=== PATIENT | female | born 1990 | race Caucasian/White ===

== ENCOUNTER 2017-10-10 01:34 | Emergency (ER) | payer BC ==
[2017-10-10] MEDS ORDERED: Amoxicillin/Clavulanate K 875-125 MG Tab PO ONE (01:50)
--- NOTE | 2017-10-10 01:57 | EDM.PDOC ---
ED HPI GENERAL MEDICAL PROBLEM - General Chief Complaint: Bite:Animal, Insect Stated Complaint: CAT BITE Time Seen by Provider: 10/10/17 01:50 Source of Information: Reports: Patient History Limitations: Reports: No Limitations - History of Present Illness INITIAL COMMENTS - FREE TEXT/NARRATIVE: 26-year-old female attends the ED after being attacked by her own cat during sleep tonight. The cat sleeps in the bed and it is suspect the cat either became entrapped or hurt in some fashion or form and then viciously attacked her like lying and biting her right arm both volarly and extensor surfaces. It also attacked her face with a claw garcia to her right upper eyelid and right facial cheek below the eye but avoiding the eye itself. Her tetanus toxoid is up -to-date. The cats shots are up-to-date. None of the wounds were big enough to allow suture repair. Debridement carried out of the right upper eyelid wound. There are some superficial scratches to her right anterior lateral thigh as well. 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 COMMUNICATIONS: Reports: Other (see below) Right Face Pain Score (Numeric/FACES): 7 - Related Data Allergies Allergy/AdvReac Type Severity Reaction Status Date / Time No Known Allergies Allergy Verified 10/10/17 01:41 Home Meds: Home Meds Alirocumab [Praluent Pen] 75 mg SQ ASDIRECTED 10/10/17 [History] Amoxicillin/Potassium Clav [Augmentin 500-125 Tablet] 1 each PO BID #10 tablet 10/10/17 [Rx] Rosuvastatin Calcium 40 mg PO DAILY 10/10/17 [History] Past Medical History Cardiovascular History: Reports: High Cholesterol (She has a severe form of familial type hypercholesterolemia.), Hypertension - Past Surgical History HEENT Surgical History: Reports: Tonsillectomy, Other (See Below) Other HEENT Surgeries/Procedures: wisdom tooth extraction GI Surgical History: Reports: Appendectomy Social & Family History - Tobacco Use Smoking Status *Q: Never Smoker - Recreational Drug Use Recreational Drug Use: No - Living Situation & Occupation Living situation: Reports: Occupation: Employed ED ROS GENERAL - Review of Systems Review Of Systems: See Below Constitutional: Reports: No Symptoms HEENT: Reports: No Symptoms Respiratory: Reports: No Symptoms Cardiovascular: Reports: No Symptoms Endocrine: Reports: No Symptoms GI/Abdominal: Reports: No Symptoms : Reports: No Symptoms Skin: Reports: No Symptoms Neurological: Reports: No Symptoms Psychiatric: Reports: No Symptoms Hematologic/Lymphatic: Reports: No Symptoms Immunologic: Reports: No Symptoms ED EXAM, ANIMAL BITE - Physical Exam Exam: See Below Exam Limited By: No Limitations General Appearance: Alert, Anxious, Mild Distress Eye Exam: Bilateral Eye: Normal Inspection (No signs that she suffered any corneal abrasions or injuries to the eye itself.), Other (There is a deep laceration and partial skin avulsion across her right lateral and mid upper eyelid.) Nose: Normal Inspection Throat/Mouth: Normal Lips, Normal Oropharynx Head: Atraumatic, Normocephalic, Facial Tenderness Neck: Normal Inspection, Supple, Non-Tender Respiratory/Chest: No Respiratory Distress, Lungs Clear, No Accessory Muscle Use (She has 2 lacerations to her right glen-face which are scratches from the cat.) Extremities: Other (She has superficial linear lacerations 3 to her right anterior lateral mid thigh. She has bite garcia compatible with canine bite garcia in 2 places medial aspect of her right arm and numerous scratches to the volar and extensor surface of the mid and proximal arm.) Neurological: Alert ( Again none of these are deep enough toward suture repair.) , Oriented, CN II-XII Intact, Normal Cognition Psychiatric: Normal Affect, Normal Mood Skin Exam: Normal Color, Warm/Dry Course - Vital Signs Last Recorded V/S: Last Vital Signs Temp 37.1 C 10/10/17 01:36 Pulse 88 10/10/17 01:36 Resp 16 10/10/17 01:36 BP 146/91 H 10/10/17 01:36 Pulse Ox 96 10/10/17 01:36 - Radiology Interpretation Free Text/Narrative:: 36-year-old female seen through the ED tonight after being attacked by her cat in her sleep tonight. Sleeps on their bed and it's unclear what provoked the cat to attack her. Appears that Was hurt in some fashion are formed. 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 At any rate the cat attacked her quite viciously with deep lacerations or scratches to her right lateral thigh right volar and extensor surface of her upper arm on the right side with puncture wounds indicating bites 2. She also suffered lacerations to her right glen-face particularly her right upper eyelid and right face below the eye along her nose. Last scratches are superficial and none of them will benefit from suture repair. She is up-to-date on her tetanus toxoid. She will be placed on Augmentin 875 mg by mouth now and then 500 mg twice a day for the next 5 days as prophylactic medication against infection. She will return to [facility] medical care if any signs of infection do develop. Wounds are to be cleansed daily and then topical antibiotic such as Polysporin or bacitracin to be applied Departure - Departure Time of Disposition: 02:06 Disposition: Home, Self-Care 01 Condition: Fair Clinical Impression: Cat scratch of face Qualifiers: Encounter type: initial encounter Qualified Code(s): S00.81XA - Abrasion of other part of head, initial encounter; W55.03XA - Scratched by cat, initial encounter - Discharge Information Prescriptions: Amoxicillin/Potassium Clav [Augmentin 500-125 Tablet] 1 each PO BID #10 tablet Referrals: Consuelo Reardon [employer] EXAMINER [Primary Care Provider] - Additional Instructions: Evaluation the emergency room tonight in regards to multiple deep scratches and bite garcia to the right arm and right side of the face from being attacked by your cat. Whatever reason the cat appeared to have been hurt and attacked uncontrollably. There are deep puncture wounds to the inside aspect of your right arm indicating canine bites. The rest are deep scratches. Treatment is to daily cleanse all wounds with soap and water. Showering is okay. Then apply topical antibiotic such as bacitracin or Polysporin to all wounds once daily usually at bedtime. Prophylactic antibiotics are to be taken Augmentin 500 mg twice daily for the next 5 days to prevent secondary wound infections due to cat bites often causing significant soft tissue infections 3 days later. Unfortunately some of these wounds will heal with permanent scarring.
== END 2017-10-10 02:10 | disposition home or self-care (01) ==
LOC: JD.ED 01:34
DX: S01.111A Laceration without foreign body of right eyelid and periocular area, initial encounter (principal); S71.111A Laceration without foreign body, right thigh, initial encounter; S40.811A Abrasion of right upper arm, initial encounter; I10 Essential (primary) hypertension; W55.03XA Scratched by cat, initial encounter
CPT/HCPCS: 99283; A9270

== ENCOUNTER 2018-04-29 16:57 | Emergency (ER) | payer BC ==
[2018-04-29] MEDS ORDERED: Sodium Chloride 0.9% 1,000 ML IV ONE (18:06)
[2018-04-29] MEDS ORDERED: Sodium Chloride 0.9% 10 ML Syringe FLUSH PRN (18:06)
[2018-04-29] MEDS ORDERED: HYDROmorphone 1 MG/ML Syringe IVPUSH ONE (18:06)
[2018-04-29] MEDS ORDERED: Ondansetron 4 MG/2 ML SDV IVPUSH ONE (18:06)
--- NOTE | 2018-04-29 19:46 | EDM.PDOC ---
ED HPI GENERAL MEDICAL PROBLEM - General Chief Complaint: Abdominal Pain Stated Complaint: R SIDE ABDOMINAL PAIN Time Seen by Provider: 04/29/18 17:55 Source of Information: Reports: Patient History Limitations: Reports: No Limitations - History of Present Illness INITIAL COMMENTS - FREE TEXT/NARRATIVE: 27 year old female presents for evaluation and treatment of abdominal pain. Reports abdominal pain for the last 2-3 days. Reports pain primarily in the epigastric area. Reports pain started after eating dinner. She reports the pain wraps around her and radiates into her back. Last intake was around 13:30 today. Reports the pain initially started as a sharp, stabbing pain but has become more of a dull ache. Improves when she is not eating. Reports associated symptoms of nausea but no fevers, chills, vomiting or diarrhea. LMP was about a month ago. She is supposed to start her menstrual cycle any day. PCP is Char Orellana. Patient sees cardiology, Dr. Galeas, for high cholesterol. Location: Reports: Abdomen Right Upper Abdominal Pain Score (Numeric/FACES): 9 - Related Data Allergies Allergy/AdvReac Type Severity Reaction Status Date / Time No Known Allergies Allergy Verified 10/10/17 01:41 Home Meds: Home Meds Alirocumab [Praluent Pen] 75 mg SQ ASDIRECTED 10/10/17 [History] Rosuvastatin Calcium 40 mg PO DAILY 10/10/17 [History] Multivitamin [Multivitamins] 1 tab PO DAILY 04/29/18 [History] Norethindrone AC-Eth Estradiol [Junel 1 mg-20 Mcg Tablet] 1 tab PO DAILY [History] Past Medical History HEENT History: Reports: Impaired Vision Cardiovascular History: Reports: High Cholesterol Respiratory History: Reports: Asthma - Past Surgical History HEENT Surgical History: Reports: Tonsillectomy, Other (See Below) Other HEENT Surgeries/Procedures: wisdom tooth extraction GI Surgical History: Reports: Appendectomy Social & Family History - Family History Family Medical History: Noncontributory - Tobacco Use Smoking Status *Q: Never Smoker - Caffeine Use Caffeine Use: Reports: Coffee - Living Situation & Occupation Living situation: Reports: Occupation: Employed ED ROS GENERAL - Review of Systems Review Of Systems: See Below Constitutional: Denies: Fever, Chills GI/Abdominal: Reports: Abdominal Pain (epigasstric with radiation around her and into her back), Nausea. Denies: Diarrhea, Vomiting : Reports: No Symptoms ED EXAM, GI/ABD - Physical Exam Exam: See Below Exam Limited By: No Limitations General Appearance: Alert, WD/WN, No Apparent Distress Nose: Normal Inspection Throat/Mouth: Normal Inspection, Normal Voice, No Airway Compromise Respiratory/Chest: No Respiratory Distress, Lungs Clear, Normal Breath Sounds Cardiovascular: Normal Peripheral Pulses, Regular Rate, Rhythm, No Murmur GI/Abdominal Exam: Normal Bowel Sounds, Soft, Other (negative hope's sign, minor discomfort to the epigastric area) Neurological: Alert, Oriented, Normal Cognition Psychiatric: Normal Affect, Normal Mood Skin Exam: Warm, Dry, Normal Color Course - Vital Signs Last Recorded V/S: Last Vital Signs Temp 98.2 F 04/29/18 17:10 Pulse 79 04/29/18 17:10 Resp 16 04/29/18 17:10 BP 173/101 H 04/29/18 17:10 Pulse Ox 100 04/29/18 17:10 - Orders/Labs/Meds Labs: Laboratory Tests 04/29/18 04/29/18 04/29/18 Range/Units 18:25 18:27 18:52 WBC (3.98-10.04) K/mm3 RBC (3.98-5.22) M/mm3 Hgb (11.2-15.7) gm/L Hct (34.1-44.9) % MCV (79.4-94.8) fl MCH (25.6-32.2) pg MCHC (32.2-35.5) g/dl RDW Std Deviation (36.4-46.3) fL Plt Count (182-369) K/mm3 MPV (9.4-12.3) fl Neutrophils % (Manual) (40-60) % Band Neutrophils % (0-10) % Lymphocytes % (Manual) (20-40) % Atypical Lymphs % % Monocytes % (Manual) (2-10) % Eosinophils % (Manual) (0.7-5.8) % Basophils % (Manual) (0.1-1.2) Platelet Estimate RBC Morph Comment Sodium 142 (136-145) mEq/L Potassium 4.0 (3.5-5.1) mEq/L Chloride 104 (98-107) mEq/L Carbon Dioxide 28 (21-32) mEq/L Anion Gap 14.0 (5-15) BUN 10 (7-18) mg/dL Creatinine 0.9 (0.55-1.02) mg/dL Est Cr Clr Drug Dosing 77.67 mL/min Estimated GFR (MDRD) > 60 (>60) mL/min BUN/Creatinine Ratio 11.1 L (14-18) Glucose 101 (74-106) mg/dL Calcium 9.0 (8.5-10.1) mg/dL Total Bilirubin 0.2 (0.2-1.0) mg/dL GGT 30 (5-55) U/L AST 17 (15-37) U/L ALT 32 (14-59) U/L Alkaline Phosphatase 64 (46-116) U/L C-Reactive Protein < 0.2 (<1.0) mg/dL Total Protein 7.5 (6.4-8.2) g/dl Albumin 4.0 (3.4-5.0) g/dl Globulin 3.5 gm/dL Albumin/Globulin Ratio 1.1 (1-2) Lipase 199 (73-393) U/L Urine Color Yellow (Yellow) Urine Appearance Clear (Clear) Urine pH 7.5 (5.0-8.0) Ur Specific Downs 1.020 (1.005-1.030) Urine Protein Negative (Negative) Urine Glucose (UA) Negative (Negative) Urine Ketones Negative (Negative) Urine Occult Blood Negative (Negative) Urine Nitrite Negative (Negative) Urine Bilirubin Negative (Negative) Urine Urobilinogen 0.2 (0.2-1.0) Ur Leukocyte Esterase Negative (Negative) Urine RBC Not seen (0-5) /hpf Urine WBC 0-5 (0-5) /hpf Ur Epithelial Cells 0-5 (0-5) /hpf Urine Bacteria Few (FEW) /hpf Urine Mucus Not seen (FEW) /hpf Urine HCG, Qual Negative (NEGATIVE) 04/29/18 Range/Units 18:52 WBC 9.04 (3.98-10.04) K/mm3 RBC 5.02 (3.98-5.22) M/mm3 Hgb 14.6 (11.2-15.7) gm/L Hct 42.5 (34.1-44.9) % MCV 84.7 (79.4-94.8) fl MCH 29.1 (25.6-32.2) pg MCHC 34.4 (32.2-35.5) g/dl RDW Std Deviation 36.7 (36.4-46.3) fL Plt Count 268 (182-369) K/mm3 MPV 9.3 L (9.4-12.3) fl Neutrophils % (Manual) 69 H (40-60) % Band Neutrophils % 0 (0-10) % Lymphocytes % (Manual) 26 (20-40) % Atypical Lymphs % 0 % Monocytes % (Manual) 5 (2-10) % Eosinophils % (Manual) 0 L (0.7-5.8) % Basophils % (Manual) 0 L (0.1-1.2) Platelet Estimate Adequate RBC Morph Comment Normal Sodium (136-145) mEq/L Potassium (3.5-5.1) mEq/L Chloride (98-107) mEq/L Carbon Dioxide (21-32) mEq/L Anion Gap (5-15) BUN (7-18) mg/dL Creatinine (0.55-1.02) mg/dL Est Cr Clr Drug Dosing mL/min Estimated GFR (MDRD) (>60) mL/min BUN/Creatinine Ratio (14-18) Glucose (74-106) mg/dL Calcium (8.5-10.1) mg/dL Total Bilirubin (0.2-1.0) mg/dL GGT (5-55) U/L AST (15-37) U/L ALT (14-59) U/L Alkaline Phosphatase (46-116) U/L C-Reactive Protein (<1.0) mg/dL Total Protein (6.4-8.2) g/dl Albumin (3.4-5.0) g/dl Globulin gm/dL Albumin/Globulin Ratio (1-2) Lipase (73-393) U/L Urine Color (Yellow) Urine Appearance (Clear) Urine pH (5.0-8.0) Ur Specific Downs (1.005-1.030) Urine Protein (Negative) Urine Glucose (UA) (Negative) Urine Ketones (Negative) Urine Occult Blood (Negative) Urine Nitrite (Negative) Urine Bilirubin (Negative) Urine Urobilinogen (0.2-1.0) Ur Leukocyte Esterase (Negative) Urine RBC (0-5) /hpf Urine WBC (0-5) /hpf Ur Epithelial Cells (0-5) /hpf Urine Bacteria (FEW) /hpf Urine Mucus (FEW) /hpf Urine HCG, Qual (NEGATIVE) Meds: Medications Discontinued Medications Generic Name Dose Route Start Last Admin Trade Name Freq PRN Reason Stop Dose Admin Hydromorphone HCl 0.5 mg 04/29/18 18:06 04/29/18 18:44 Dilaudid IVPUSH 04/29/18 18:07 0.5 mg ONETIME ONE Administration Sodium Chloride 1,000 mls @ 999 mls/hr 04/29/18 18:06 04/29/18 18:44 Normal Saline IV 04/29/18 19:06 999 mls/hr ONETIME ONE Administration Ondansetron HCl 4 mg 04/29/18 18:06 04/29/18 18:44 Zofran IVPUSH 04/29/18 18:07 4 mg ONETIME ONE Administration Sodium Chloride 10 ml 04/29/18 18:06 04/29/18 18:44 Saline Flush FLUSH 10 ml ASDIRECTED PRN Administration Keep Vein Open - Re-Assessments/Exams Free Text/Narrative Re-Assessment/Exam: 04/29/18 19:45 Reviewed the labs with the patient. I feel her discomfort is most likely from her gallbladder. No indication for ultrasound tonight and I feel this can be done as an outpatient. Will discharge home tonight with an outpatient order for an ultrasound and recommendations for close follow-up in the clinic. Discharge instructions as documented. Departure - Departure Time of Disposition: 19:46 Disposition: Home, Self-Care 01 Condition: Fair Clinical Impression: RUQ pain - Discharge Information *PRESCRIPTION DRUG MONITORING PROGRAM REVIEWED*: No *COPY OF PRESCRIPTION DRUG MONITORING REPORT IN PATIENT SLAVA: No Instructions: Abdominal Pain, Adult Referrals: Char Orellana PA-C [Primary Care Provider] - Forms: ED Department Discharge Additional Instructions: Rx for norco 1-2 tabs PO every 4-6 hours prn pain #10 written from [facility]. Your pain tonight is most likely from your gallbladder. An order has been placed for you to have an ultrasound as an outpatient. They should call to schedule this with you but if you do not hear from them please call [phone] to schedule with the radiology department. Follow-up with your primary care provider later this week for recheck of your symptoms. You were given medication ER that can affect your ability to drive and operate machinery. Do not drive or operate machinery within 10 hours of taking perception narcotic pain medication. Take [id number] Motrin as needed for pain. Do not take more than 3200 mg of ibuprofen from all sources in 1 day. Do not take more than 4 g of Tylenol from all sources in 1 day. For pain not relieved by ibuprofen, may take [place] one or 2 tabs every 4-6 hours. [place] is habit-forming, take as few these as needed to control your pain. Do not drive or operate machinery within 10 hours of taking [place]. Recommend avoiding fatty foods as this will cause her gallbladder to contract and worsen your pain. Recommend a bland diet. Please return to the ER if your symptoms change or worsen.
== END 2018-04-29 20:00 | disposition home or self-care (01) ==
LOC: JD.ED 16:57
DX: R10.11 Right upper quadrant pain (principal); E78.00 Pure hypercholesterolemia, unspecified; J45.909 Unspecified asthma, uncomplicated; Z79.899 Other long term (current) drug therapy
CPT/HCPCS: 36415; 80053; 81001; 81025; 82977; 83690; 85007; 85027; 86140; 96361; 96374; 96375; 99284; J1170; J2405; J7040

== ENCOUNTER 2020-03-01 07:09 | Inpatient (IN) | payer BC ==
[2020-03-03] MEDS ORDERED: Calcium Carbonate 500 MG Tab.Chew PO PRN (07:44)
[2020-03-03] MEDS ORDERED: Nalbuphine 10 MG/ML Syringe IVPUSH PRN (07:44)
[2020-03-03] MEDS ORDERED: Sodium Chloride 0.9% 10 ML Syringe FLUSH PRN (07:44)
[2020-03-03] MEDS ORDERED: Ondansetron 4 MG/2 ML SDV IVPUSH PRN (07:44)
[2020-03-03] MEDS ORDERED: Misoprostol 25 MCG (1/4 of 100 MCG) Tab VAG ONE (08:00)
[2020-03-03] MEDS: Lactated Ringers 1,000 ML IV SCH ×4 (09:04→22:19)
--- NOTE | 2020-03-03 09:05 | PCM.LDHP ---
L&D History of Present Illness - General Date of Service: 03/03/20 Admit Problem/Dx: Patient Status Order with Admit Dx/Problem 03/03/20 08:30 Patient Status [ADT] Routine Admission Diagnosis/Problem Admission Diagnosis/Problem Source of Information: Patient History Limitations: Reports: No Limitations - History of Present Illness Introduction:: Patient is a 29 y/o at 40 2/7 wks who was to present for IOL today, but actually states contractions started early this AM. Was about 0600 this AM. No bleeding. Some wetness, but no discrete findings of ROM. Rates contractions as a 07/14. 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 Para: 0 LMP (Approximate): Psychiatric History: Reports: Anxiety - Past Surgical History HEENT Surgical History: Reports: Tonsillectomy, Other (See Below) Other HEENT Surgeries/Procedures: wisdom tooth extraction GI Surgical History: Reports: Appendectomy, Cholecystectomy, Colonoscopy, EGD Social & Family History - Family History Family Medical History: Noncontributory - Tobacco Use Tobacco Use Status *Q: Never Tobacco User - Caffeine Use Caffeine Use: Reports: Coffee - Alcohol Use Alcohol Use History: No - Recreational Drug Use Recreational Drug Use: No - Living Situation & Occupation Living situation: Reports: Occupation: Employed H&P Review of Systems - Review of Systems: Review Of Systems: See Below General: Reports: No Symptoms Pulmonary: Reports: No Symptoms Cardiovascular: Reports: No Symptoms Gastrointestinal: Reports: Abdominal Pain Genitourinary: Reports: No Symptoms Musculoskeletal: Reports: No Symptoms Psychiatric: Reports: No Symptoms Neurological: Reports: No Symptoms L&D Exam - Exam Exam: See Below - Vital Signs Vital Signs: Last Vital Signs Temp 37.6 C 03/03/20 07:36 Pulse Resp 16 03/03/20 07:36 BP 139/83 03/03/20 07:36 Pulse Ox 98 03/03/20 07:36 Weight: 88.451 kg - OB Specific Contraction Intensity: Mild Movement: Active Heart Tones: Present Heart Tones per Min: 145 Heart Rate (FHR) Variability: Moderate (6-25 bmp) Presentation: Vertex - Montiel Score Montiel Score Cervix Position: Midposition Montiel Score Consistency: Soft Montiel Score Effacement: 31-50% Montiel Score Dilation: 1-2 cm Montiel Score 's Station: -2 Montiel Score Total: 6 - Exam General: Alert, Oriented, Cooperative Lungs: Clear to Auscultation, Normal Respiratory Effort Cardiovascular: Regular Rate, Regular Rhythm GI/Abdominal Exam: Soft, Non-Tender Genitourinary: Normal external exam Extremities: Normal Inspection Skin: Warm, Dry, Intact - Patient Data Lab Results Last 24 hrs: Laboratory Results - last 24 hr 03/03/20 Range/Units 08:08 WBC 12.42 H (3.98-10.04) K/mm3 RBC 4.27 (3.98-5.22) M/mm3 Hgb 12.3 D (11.2-15.7) gm/dl Hct 37.2 (34.1-44.9) % MCV 87.1 (79.4-94.8) fl MCH 28.8 (25.6-32.2) pg MCHC 33.1 (32.2-35.5) g/dl RDW Std Deviation 43.4 (36.4-46.3) fL Plt Count 272 (182-369) K/mm3 MPV 9.1 L (9.4-12.3) fl Neut % (Auto) 72.3 H (34.0-71.1) % Lymph % (Auto) 15.0 L (19.3-51.7) % [place] % (Auto) 8.5 (4.7-12.5) % Eos % (Auto) 2.7 (0.7-5.8) Baso % (Auto) 0.2 (0.1-1.2) % Neut # (Auto) 9.00 H (1.56-6.13) K/mm3 Lymph # (Auto) 1.86 (1.18-3.74) K/mm3 [place] # (Auto) 1.05 H (0.24-0.36) K/mm3 Eos # (Auto) 0.33 (0.04-0.36) K/mm3 Baso # (Auto) 0.02 (0.01-0.08) K/mm3 Result Diagrams: 03/03/20 08:08 - Problem List (1) 40 weeks gestation of SNOMED Code(s): 16000884 ICD Code: Z3A.40 - 40 WEEKS GESTATION OF Status: Acute Current Visit: Yes (2) Rh negative state in antepartum period SNOMED Code(s): 197428307 ICD Code: O26.899 - OTH RELATED CONDITIONS, UNSPECIFIED TRIMESTER; Z67.91 - UNSPECIFIED BLOOD TYPE, RH NEGATIVE Status: Acute Current Visit: Yes Problem List Initiated/Reviewed/Updated: Yes Orders Last 24hrs: Active Orders 24 hr Category Date Time Status Patient Status [ADT] Routine ADT 03/03/20 08:30 Active Activity as Tolerated [RC] PFP Care 03/03/20 07:44 Active Communication Order [RC] ASDIRECTED Care 03/03/20 07:44 Active Heart Tones [RC] ASDIRECTED Care 03/03/20 07:45 Active Non Stress Test [RC] PER UNIT ROUTINE Care 03/03/20 07:44 Active Notify Provider [RC] PFP Care 03/03/20 07:44 Active Notify Provider [RC] PRN Care 03/03/20 07:44 Active Peripheral IV Care [RC] . DIRECTED Care 03/03/20 07:45 Active Vital Signs [RC] PER UNIT ROUTINE Care 03/03/20 07:44 Active Regular Diet [DIET] Diet 03/03/20 Breakfast Active CBC WITH AUTO DIFF [HEME] Stat Lab 03/03/20 08:08 Results CORONAVIRUS COVID-19 NIA [MOLEC] Stat Lab 03/03/20 07:40 Received RAPID PLASMA REAGIN,RPR [CHEM] Routine Lab 03/03/20 08:08 Received TYPE AND SCREEN [BBK] Stat Lab 03/03/20 08:08 Received Calcium Carbonate [Tums] Med 03/03/20 07:44 Active 1,000 mg PO Q2H PRN Lactated Ringers [Ringers, Lactated] 1,000 ml Med 03/03/20 07:45 Active IV ASDIRECTED Nalbuphine [Nubain] Med 03/03/20 07:44 Active 10 mg IVPUSH Q2H PRN Ondansetron [Zofran] Med 03/03/20 07:44 Active 4 mg IVPUSH Q4H PRN Oxytocin/Lactated Ringers [Pitocin in LR 10 Units/1,000 Med 03/03/20 07:45 Active ML] 10 unit in 1,000 ml IV TITRATE Sodium Chloride 0.9% [Saline Flush] Med 03/03/20 07:44 Active 10 ml FLUSH ASDIRECTED PRN Electronic Heart Tones Ext w TOCO [WOMSER] Oth 03/03/20 07:44 Ordered Routine Electronic Heart Tones Internal [WOMSER] Per Unit Ot 03/03/20 07:44 Ordered Routine Peripheral IV Insertion Adult [OM.PC] Routine Oth 03/03/20 07:44 Ordered Resuscitation Status Routine Resus Stat 03/03/20 07:44 Ordered Medication Orders Calcium Carbonate/Glycine (Tums) 1,000 mg PO Q2H PRN PRN Reason: Indigestion Lactated Ringer's (Ringers, Lactated) 1,000 mls @ 100 mls/hr IV ASDIRECTED GABINO Oxytocin/Lactated Ringer's (Pitocin In Lr 10 Units/1,000 Ml) 10 unit in 1,000 mls @ 12 mls/hr IV TITRATE GABINO; Protocol Nalbuphine HCl (Nubain) 10 mg IVPUSH Q2H PRN PRN Reason: Pain Ondansetron HCl (Zofran) 4 mg IVPUSH Q4H PRN PRN Reason: Nausea/Vomiting Sodium Chloride (Saline Flush) 10 ml FLUSH ASDIRECTED PRN PRN Reason: Keep Vein Open Stop: 03/03/20 12:00 Assessment/Plan Comment:: * Labs * GBS negative * Pitocin as needed for augmentation * Pain control per patient preference * Anticipate
[2020-03-03] MEDS: Oxytocin/Lactated Ringers 10 UNIT/1,000 ML BAG IV SCH (09:12)
--- NOTE | 2020-03-03 10:19 | PCM.PREANE ---
Preanesthetic Assessment - Procedure Proposed Procedure: Labor epidural if desired patient uncertain at this time. - Anesthesia/Transfusion/Family Hx Anesthesia History: Prior Anesthesia Without Reaction Family History of Anesthesia Reaction: No Transfusion History: No Prior Transfusion(s) - Review of Systems General: No Symptoms Pulmonary: Other (Asthma. Albuterol use as needed. Controlled. ) Cardiovascular: No Symptoms, Other (high cholesterol, family history strong) Gastrointestinal: No Symptoms Neurological: No Symptoms Other: Reports: None - Physical Assessment Vital Signs: Last Vital Signs Temp 37.6 C 03/03/20 07:36 Pulse Resp 16 03/03/20 07:36 BP 139/83 03/03/20 07:36 Pulse Ox 98 03/03/20 07:36 Height: 1.6 m Weight: 88.451 kg ASA Class: 2 Mental Status: Alert & Oriented x3 Airway Class: Mallampati = 2 Dentition: Reports: Normal Dentition Thyro-Mental Finger Breadths: 3 Mouth Opening Finger Breadths: 3 ROM/Head Extension: Full Lungs: Clear to Auscultation, Normal Respiratory Effort Cardiovascular: Regular Rate, Regular Rhythm - Lab Values: Laboratory Last Values WBC 12.42 K/mm3 (3.98-10.04) H 03/03/20 08:08 RBC 4.27 M/mm3 (3.98-5.22) 03/03/20 08:08 Hgb 12.3 gm/dl (11.2-15.7) D 03/03/20 08:08 Hct 37.2 % (34.1-44.9) 03/03/20 08:08 MCV 87.1 fl (79.4-94.8) 03/03/20 08:08 MCH 28.8 pg (25.6-32.2) 03/03/20 08:08 MCHC 33.1 g/dl (32.2-35.5) 03/03/20 08:08 RDW Std Deviation 43.4 fL (36.4-46.3) 03/03/20 08:08 Plt Count 272 K/mm3 (182-369) 03/03/20 08:08 MPV 9.1 fl (9.4-12.3) L 03/03/20 08:08 Neut % (Auto) 72.3 % (34.0-71.1) H 03/03/20 08:08 Lymph % (Auto) 15.0 % (19.3-51.7) L 03/03/20 08:08 [place] % (Auto) 8.5 % (4.7-12.5) 03/03/20 08:08 Eos % (Auto) 2.7 (0.7-5.8) 03/03/20 08:08 Baso % (Auto) 0.2 % (0.1-1.2) 03/03/20 08:08 Neut # (Auto) 9.00 K/mm3 (1.56-6.13) H 03/03/20 08:08 Lymph # (Auto) 1.86 K/mm3 (1.18-3.74) 03/03/20 08:08 [place] # (Auto) 1.05 K/mm3 (0.24-0.36) H 03/03/20 08:08 Eos # (Auto) 0.33 K/mm3 (0.04-0.36) 03/03/20 08:08 Baso # (Auto) 0.02 K/mm3 (0.01-0.08) 03/03/20 08:08 Manual Slide Review Normal smear 03/03/20 08:08 SARS-CoV-2 RNA (NIA) Negative (NEGATIVE) 03/03/20 07:40 Blood Type B NEGATIVE 03/03/20 08:08 Gel Antibody Screen Positive 03/03/20 08:08 - Allergies Allergies/Adverse Reactions: Allergies Allergy/AdvReac Type Severity Reaction Status Date / Time Fish Containing Products Allergy Rash Verified 12/21/19 21:55 pet dander Allergy Rash Uncoded 12/21/19 21:55 - Acknowledgements Anesthesia Type Planned: Epidural Pt an Appropriate Candidate for the Planned Anesthesia: Yes Alternatives and Risks of Anesthesia Discussed w Pt/Guardian: Yes Pt/Guardian Understands and Agrees with Anesthesia Plan: Yes PreAnesthesia Questionnaire - Past Health History Medical/Surgical History: Denies Medical/Surgical History HEENT History: Reports: Impaired Vision Cardiovascular History: Reports: High Cholesterol Respiratory History: Reports: Asthma Psychiatric History: Reports: Anxiety - Past Surgical History HEENT Surgical History: Reports: Tonsillectomy, Other (See Below) Other HEENT Surgeries/Procedures: wisdom tooth extraction GI Surgical History: Reports: Appendectomy - SUBSTANCE USE Tobacco Use Status *Q: Never Tobacco User Second Hand Smoke Exposure: No Recreational Drug Use History: No - HOME MEDS Home Medications: Home Meds Montelukast [Singulair] 10 mg PO DAILY 12/21/19 [History] Vits #93/Iron Fum/FA [ Formula Tablet] 12/21/19 [History] - CURRENT (IN HOUSE) MEDS Current Meds: Current Medications Calcium Carbonate/Glycine (Tums) 1,000 mg PO Q2H PRN PRN Reason: Indigestion Lactated Ringer's (Ringers, Lactated) 1,000 mls @ 100 mls/hr IV ASDIRECTED GABINO Last Admin: 03/03/20 09:04 Dose: 100 mls/hr Documented by: Oxytocin/Lactated Ringer's (Pitocin In Lr 10 Units/1,000 Ml) 10 unit in 1,000 mls @ 12 mls/hr IV TITRATE GABINO; Protocol Last Titration: 03/03/20 09:40 Dose: 4 munits/min, 24 mls/hr Documented by: Nalbuphine HCl (Nubain) 10 mg IVPUSH Q2H PRN PRN Reason: Pain Ondansetron HCl (Zofran) 4 mg IVPUSH Q4H PRN PRN Reason: Nausea/Vomiting Sodium Chloride (Saline Flush) 10 ml FLUSH ASDIRECTED PRN PRN Reason: Keep Vein Open Stop: 03/03/20 12:00 Discontinued Medications Misoprostol (Cytotec) 25 mcg VAG Q4H ONE Stop: 03/03/20 08:01
[2020-03-03] MEDS ORDERED: diphenhydrAMINE 50 MG/ML SDV IVPUSH PRN (12:17)
[2020-03-03] MEDS ORDERED: ePHEDrine 50 MG/ML SDV IVPUSH PRN (12:17)
--- NOTE | 2020-03-03 15:21 | PCM.PNLD ---
Labor Progress Note - VS & Meds Vital Signs: Last Vital Signs Temp 37.6 C 03/03/20 07:36 Pulse Resp 16 03/03/20 07:36 BP 139/83 03/03/20 07:36 Pulse Ox 98 03/03/20 07:36 Active Medications: Current Medications Calcium Carbonate/Glycine (Tums) 1,000 mg PO Q2H PRN PRN Reason: Indigestion Diphenhydramine HCl (Benadryl) 25 mg IVPUSH Q6H PRN PRN Reason: pruritis Ephedrine Sulfate (Ephedrine Sulfate) 5 mg IVPUSH ASDIRECTED PRN PRN Reason: Hypotension Fentanyl (Sublimaze) 100 mcg EPIDUR Q3H PRN PRN Reason: Pain Fentanyl/Bupivacaine HCl (Fentanyl/Bupivacaine/Ns 2 Mcg-0.125% 100 Ml) 100 ml EPIDUR ASDIRECTED PRN PRN Reason: Pain Lactated Ringer's (Ringers, Lactated) 1,000 mls @ 100 mls/hr IV ASDIRECTED GABINO Last Admin: 03/03/20 09:04 Dose: 100 mls/hr Documented by: Oxytocin/Lactated Ringer's (Pitocin In Lr 10 Units/1,000 Ml) 10 unit in 1,000 mls @ 12 mls/hr IV TITRATE GABINO; Protocol Last Titration: 03/03/20 14:30 Dose: 8 munits/min, 48 mls/hr Documented by: Nalbuphine HCl (Nubain) 10 mg IVPUSH Q2H PRN PRN Reason: Pain Ondansetron HCl (Zofran) 4 mg IVPUSH Q4H PRN PRN Reason: Nausea/Vomiting Discontinued Medications Misoprostol (Cytotec) 25 mcg VAG Q4H ONE Stop: 03/03/20 08:01 Sodium Chloride (Saline Flush) 10 ml FLUSH ASDIRECTED PRN PRN Reason: Keep Vein Open Stop: 03/03/20 12:00 - Uterine Contractions Uterine Monitoring Mode: External [place] Contraction Intensity: Mild Uterine Resting Tone: Soft - Monitoring Monitor Mode: External Ultrasound Heart Rate (FHR) Baseline: 150 Heart Rate (FHR) Variability: Moderate (6-25 bmp) Accelerations: Present, 10x10 (=/<32 wks) Decelerations: None Strip Review: Category I - Vaginal Exam Dilation (cm): 1-2 Effacement (Percent): 50 Station: -2 Cervical Position: Midposition - Labor Progress (Free Text) Labor Progress: Pitocin currently at 8, was at a high of 14, but had too frequent of contractions. Rates contractions as a 7/10. Exam similar to previous. Currie catheter placed to continue induction process. Will reassess later this PM to see if ROM seems appropriate
[2020-03-03] MEDS: Bupivacaine/fentaNYL/NS 100 ML Bag EPIDUR PRN (17:28)
[2020-03-03] MEDS: fentaNYL 100 MCG/2 ML SDV EPIDUR PRN (17:28)
--- NOTE | 2020-03-03 19:42 | PCM.PNLD ---
Labor Progress Note - VS & Meds Vital Signs: Last Vital Signs Temp 37.6 C 03/03/20 07:36 Pulse Resp 16 03/03/20 07:36 BP 139/83 03/03/20 07:36 Pulse Ox 98 03/03/20 07:36 Active Medications: Current Medications Calcium Carbonate/Glycine (Tums) 1,000 mg PO Q2H PRN PRN Reason: Indigestion Diphenhydramine HCl (Benadryl) 25 mg IVPUSH Q6H PRN PRN Reason: pruritis Ephedrine Sulfate (Ephedrine Sulfate) 5 mg IVPUSH ASDIRECTED PRN PRN Reason: Hypotension Fentanyl (Sublimaze) 100 mcg EPIDUR Q3H PRN PRN Reason: Pain Last Admin: 03/03/20 17:28 Dose: 100 mcg Documented by: Fentanyl/Bupivacaine HCl (Fentanyl/Bupivacaine/Ns 2 Mcg-0.125% 100 Ml) 100 ml EPIDUR ASDIRECTED PRN PRN Reason: Pain Last Admin: 03/03/20 17:28 Dose: 100 ml Documented by: Lactated Ringer's (Ringers, Lactated) 1,000 mls @ 100 mls/hr IV ASDIRECTED GABINO Last Admin: 03/03/20 18:09 Dose: 100 mls/hr Documented by: Oxytocin/Lactated Ringer's (Pitocin In Lr 10 Units/1,000 Ml) 10 unit in 1,000 mls @ 12 mls/hr IV TITRATE GABINO; Protocol Last Titration: 03/03/20 17:17 Dose: 4 munits/min, 24 mls/hr Documented by: Nalbuphine HCl (Nubain) 10 mg IVPUSH Q2H PRN PRN Reason: Pain Ondansetron HCl (Zofran) 4 mg IVPUSH Q4H PRN PRN Reason: Nausea/Vomiting Discontinued Medications Misoprostol (Cytotec) 25 mcg VAG Q4H ONE Stop: 03/03/20 08:01 Last Admin: 03/03/20 19:05 Dose: Not Given Documented by: Sodium Chloride (Saline Flush) 10 ml FLUSH ASDIRECTED PRN PRN Reason: Keep Vein Open Stop: 03/03/20 12:00 - Uterine Contractions Uterine Monitoring Mode: External [place] Contraction Intensity: Mild to Moderate Uterine Resting Tone: Soft - Monitoring Monitor Mode: External Ultrasound Heart Rate (FHR) Baseline: 125 Heart Rate (FHR) Variability: Moderate (6-25 bmp) Accelerations: Present, 10x10 (=/<32 wks) Decelerations: None Strip Review: Category I - Vaginal Exam Dilation (cm): 3 Effacement (Percent): 50 Station: -2 Cervical Position: Midposition - Labor Progress (Free Text) Labor Progress: Patient became very uncomfortable with Currie bulb. Received epidural and then Currie bulb out around 1800. Pitocin currently down to 4. AROM performed with release of large amount of clear fluid. Continue to increase per protocol.
[2020-03-04] MEDS ORDERED: Bupivacaine 0.25% 10 ML SDV ONE
[2020-03-04] MEDS: Lactated Ringers 1,000 ML IV SCH (00:46)
[2020-03-04] MEDS: Bupivacaine/fentaNYL/NS 100 ML Bag EPIDUR PRN (02:53)
[2020-03-04] MEDS: fentaNYL 100 MCG/2 ML SDV EPIDUR PRN (03:28)
--- NOTE | 2020-03-04 04:02 | PCM.PNLD ---
Labor Progress Note - VS & Meds Vital Signs: Last Vital Signs Temp 37.6 C 03/03/20 07:36 Pulse Resp 16 03/03/20 07:36 BP 139/83 03/03/20 07:36 Pulse Ox 98 03/03/20 07:36 Active Medications: Current Medications Calcium Carbonate/Glycine (Tums) 1,000 mg PO Q2H PRN PRN Reason: Indigestion Diphenhydramine HCl (Benadryl) 25 mg IVPUSH Q6H PRN PRN Reason: pruritis Ephedrine Sulfate (Ephedrine Sulfate) 5 mg IVPUSH ASDIRECTED PRN PRN Reason: Hypotension Fentanyl (Sublimaze) 100 mcg EPIDUR Q3H PRN PRN Reason: Pain Last Admin: 03/04/20 03:28 Dose: 100 mcg Documented by: Fentanyl/Bupivacaine HCl (Fentanyl/Bupivacaine/Ns 2 Mcg-0.125% 100 Ml) 100 ml EPIDUR ASDIRECTED PRN PRN Reason: Pain Last Admin: 03/04/20 02:53 Dose: 100 ml Documented by: Lactated Ringer's (Ringers, Lactated) 1,000 mls @ 100 mls/hr IV ASDIRECTED GABINO Last Admin: 03/04/20 00:46 Dose: 100 mls/hr Documented by: Oxytocin/Lactated Ringer's (Pitocin In Lr 10 Units/1,000 Ml) 10 unit in 1,000 mls @ 12 mls/hr IV TITRATE GABINO; Protocol Last Titration: 03/04/20 03:03 Dose: 12 munits/min, 72 mls/hr Documented by: Nalbuphine HCl (Nubain) 10 mg IVPUSH Q2H PRN PRN Reason: Pain Ondansetron HCl (Zofran) 4 mg IVPUSH Q4H PRN PRN Reason: Nausea/Vomiting Last Admin: 03/04/20 00:46 Dose: 4 mg Documented by: Discontinued Medications Misoprostol (Cytotec) 25 mcg VAG Q4H ONE Stop: 03/03/20 08:01 Last Admin: 03/03/20 19:05 Dose: Not Given Documented by: Sodium Chloride (Saline Flush) 10 ml FLUSH ASDIRECTED PRN PRN Reason: Keep Vein Open Stop: 03/03/20 12:00 - Uterine Contractions Uterine Monitoring Mode: External [place] Contraction Intensity: Mild to Moderate Uterine Resting Tone: Soft - Monitoring Monitor Mode: External Ultrasound Heart Rate (FHR) Baseline: 135 Heart Rate (FHR) Variability: Moderate (6-25 bmp) Accelerations: Present, 10x10 (=/<32 wks) Decelerations: Early, Late (rare, isolated) Strip Review: Category II - Vaginal Exam Dilation (cm): 5-6 Effacement (Percent): 80 Station: -1 Cervical Position: Midposition - Labor Progress (Free Text) Labor Progress: Pitocin currently at 12. At times difficult to adjust pitocin/spanish moss picker contractions. IUPC placed. Continue per protocol
[2020-03-04] MEDS: Oxytocin/Lactated Ringers 10 UNIT/1,000 ML BAG IV SCH (04:21)
--- NOTE | 2020-03-04 07:08 | PCM.PNLD ---
Labor Progress Note - VS & Meds Vital Signs: Last Vital Signs Temp 37.6 C 03/03/20 07:36 Pulse Resp 16 03/03/20 07:36 BP 139/83 03/03/20 07:36 Pulse Ox 98 03/03/20 07:36 Active Medications: Current Medications Calcium Carbonate/Glycine (Tums) 1,000 mg PO Q2H PRN PRN Reason: Indigestion Diphenhydramine HCl (Benadryl) 25 mg IVPUSH Q6H PRN PRN Reason: pruritis Ephedrine Sulfate (Ephedrine Sulfate) 5 mg IVPUSH ASDIRECTED PRN PRN Reason: Hypotension Fentanyl (Sublimaze) 100 mcg EPIDUR Q3H PRN PRN Reason: Pain Last Admin: 03/04/20 03:28 Dose: 100 mcg Documented by: Fentanyl/Bupivacaine HCl (Fentanyl/Bupivacaine/Ns 2 Mcg-0.125% 100 Ml) 100 ml EPIDUR ASDIRECTED PRN PRN Reason: Pain Last Admin: 03/04/20 02:53 Dose: 100 ml Documented by: Lactated Ringer's (Ringers, Lactated) 1,000 mls @ 100 mls/hr IV ASDIRECTED GABINO Last Admin: 03/04/20 00:46 Dose: 100 mls/hr Documented by: Oxytocin/Lactated Ringer's (Pitocin In Lr 10 Units/1,000 Ml) 10 unit in 1,000 mls @ 12 mls/hr IV TITRATE GABINO; Protocol Last Titration: 03/04/20 05:30 Dose: 15 munits/min, 90 mls/hr Documented by: Nalbuphine HCl (Nubain) 10 mg IVPUSH Q2H PRN PRN Reason: Pain Ondansetron HCl (Zofran) 4 mg IVPUSH Q4H PRN PRN Reason: Nausea/Vomiting Last Admin: 03/04/20 00:46 Dose: 4 mg Documented by: Discontinued Medications Misoprostol (Cytotec) 25 mcg VAG Q4H ONE Stop: 03/03/20 08:01 Last Admin: 03/03/20 19:05 Dose: Not Given Documented by: Sodium Chloride (Saline Flush) 10 ml FLUSH ASDIRECTED PRN PRN Reason: Keep Vein Open Stop: 03/03/20 12:00 - Uterine Contractions Uterine Monitoring Mode: IUPC Contraction Intensity: Moderate to Strong Uterine Resting Tone: Soft - Monitoring Monitor Mode: External Ultrasound Heart Rate (FHR) Baseline: 120 Heart Rate (FHR) Variability: Moderate (6-25 bmp) Accelerations: Present, 10x10 (=/<32 wks) Decelerations: Early Strip Review: Category I - Vaginal Exam Dilation (cm): 9-10 Effacement (Percent): 100 Station: 1 Cervical Position: Anterior - Labor Progress (Free Text) Labor Progress: Doing well. Feeling some pressure through the epidural. Pitocin now at 15. Will reassess again in 30-45 minutes. Will then hopefully be complete and begin pushing.
--- NOTE | 2020-03-04 09:35 | PCM.DEL ---
L & D Note - General Info Date of Service: 03/04/20 - Delivery Note Labor: Induced by ARM, Induced by Oxytocin Cervical Ripening Method: Balloon Device Delivery Outcome: Livebirth Infant Delivery Method: Spontaneous Vaginal Delivery-Single Infant Delivery Mode: Spontaneous Presentation: Left Occiput Anterior (KAUR) Nuchal Cord: None Anesthesia Type: Epidural Amniotic Fluid Description: Clear Episiotomy Type: None Laceration: 1st Degree, Vaginal Suture type: Vicryl Suture size: 2-0 Placenta: Intact, Spontaneous Cord: 3 Vessels Estimated Blood Loss: 100 Resuscitation Needed: Yes [place]: Bulb Syringe, Stimulated, Warmed, [place] Used, Warmer Used Delivery Comments (Free Text/Narrative):: Patient found to be complete and began pushing. With maternal pushing effort head delivered form GERTRUDIS presentation. Did eventually restitute to KAUR and then with gentle downward traction shoulders and body delivered. placed on maternal abdomen. Cord clamped and cut. Cord blood obtained. Placenta allowed time to separate and expelled intact. Inspection of the perineum showed small 1st degree tear which was repaired with a 2-0 vicryl in a running fashion - General Info Date of Service: 03/04/20 - Patient Data Vitals - Most Recent: Last Vital Signs Temp 37.6 C 03/03/20 07:36 Pulse Resp 16 03/03/20 07:36 BP 139/83 03/03/20 07:36 Pulse Ox 98 03/03/20 07:36 Weight - Most Recent: 88.451 kg I&O - Last 24 Hours: Intake & Output 03/03/20 03/04/20 03/04/20 22:59 06:59 14:59 Intake Total 2380 3000 Balance 2380 3000 - Problem List & Annotations (1) 40 weeks gestation of SNOMED Code(s): 09825539 Code(s): Z3A.40 - 40 WEEKS GESTATION OF Status: Acute Current Visit: Yes (2) Rh negative state in antepartum period SNOMED Code(s): 473500128 Code(s): O26.899 - OTH RELATED CONDITIONS, UNSPECIFIED TRIMESTER; Z67.91 - UNSPECIFIED BLOOD TYPE, RH NEGATIVE Status: Acute Current Visit: Yes (3) Vaginal delivery SNOMED Code(s): 168382241 Code(s): O80 - ENCOUNTER FOR FULL-TERM UNCOMPLICATED DELIVERY Status: Acute Current Visit: Yes - Problem List Review Problem List Initiated/Reviewed/Updated: Yes - Assessment Assessment:: PPD#0 - Plan Plan:: * Routine cares * Breast feeding in hospital, but bottle feeding on discharge so can resume hypercholesterolemia medications * Will assess baby blood type to see if Rhogam required * Discharge home on 1-2 days
[2020-03-04] MEDS ORDERED: Benzocaine/Menthol 20%-0.5% Spray 56 GM Canister TOP PRN (10:39)
[2020-03-04] MEDS ORDERED: Witch Hazel Medicated Pads 40/Jar TOP PRN (10:39)
[2020-03-04] MEDS ORDERED: Acetaminophen 325 MG Tab PO PRN (10:39)
[2020-03-04] MEDS: Ibuprofen 600 MG Tab PO PRN ×2 (10:57→18:03)
[2020-03-04] MEDS: Docusate Sodium 100 MG Cap PO PRN (11:02)
[2020-03-05] MEDS: Ibuprofen 600 MG Tab PO PRN ×3 (03:58→20:54)
--- NOTE | 2020-03-05 07:11 | PCM.PNPP ---
- General Info Date of Service: 03/05/20 Functional Status: Reports: Pain Controlled, Tolerating Diet, Ambulating, Urinating - Review of Systems General: Reports: No Symptoms Pulmonary: Reports: No Symptoms Cardiovascular: Reports: No Symptoms Gastrointestinal: Reports: No Symptoms Genitourinary: Reports: No Symptoms Musculoskeletal: Reports: No Symptoms Neurological: Reports: No Symptoms - Patient Data Vital Signs - Most Recent: Last Vital Signs Temp 36.4 C 03/05/20 03:50 Pulse 92 03/05/20 03:50 Resp 16 03/05/20 03:50 BP 121/65 03/05/20 03:50 Pulse Ox 98 03/05/20 03:50 Weight - Most Recent: 88.451 kg I&O - Last 24 Hours: Intake & Output 03/04/20 03/05/20 03/05/20 22:59 06:59 14:59 Intake Total 440 Balance 440 Med Orders - Current: Current Medications Acetaminophen (Tylenol) 650 mg PO Q4H PRN PRN Reason: mild pain or fever Benzocaine/Menthol (Dermoplast Pain Relief [place]) 0 gm TOP ASDIRECTED PRN PRN Reason: Perineal Comfort Measure Last Admin: 03/04/20 11:03 Dose: 1 can Documented by: Docusate Sodium (Colace) 100 mg PO BID PRN PRN Reason: Constipation Last Admin: 03/04/20 11:02 Dose: 100 mg Documented by: Ibuprofen (Motrin) 600 mg PO Q6H PRN PRN Reason: Mild pain or fever Last Admin: 03/05/20 03:58 Dose: 600 mg Documented by: Mickey Hamilton (Mikes) 1 pad TOP ASDIRECTED PRN PRN Reason: Perineal Comfort Measure Last Admin: 03/04/20 11:03 Dose: 1 jar Documented by: Discontinued Medications Calcium Carbonate/Glycine (Tums) 1,000 mg PO Q2H PRN PRN Reason: Indigestion Diphenhydramine HCl (Benadryl) 25 mg IVPUSH Q6H PRN PRN Reason: pruritis Ephedrine Sulfate (Ephedrine Sulfate) 5 mg IVPUSH ASDIRECTED PRN PRN Reason: Hypotension Fentanyl (Sublimaze) 100 mcg EPIDUR Q3H PRN PRN Reason: Pain Last Admin: 03/04/20 03:28 Dose: 100 mcg Documented by: Fentanyl/Bupivacaine HCl (Fentanyl/Bupivacaine/Ns 2 Mcg-0.125% 100 Ml) 100 ml EPIDUR ASDIRECTED PRN PRN Reason: Pain Last Admin: 03/04/20 02:53 Dose: 100 ml Documented by: Lactated Ringer's (Ringers, Lactated) 1,000 mls @ 100 mls/hr IV ASDIRECTED GABINO Last Admin: 03/04/20 00:46 Dose: 100 mls/hr Documented by: Oxytocin/Lactated Ringer's (Pitocin In Lr 10 Units/1,000 Ml) 10 unit in 1,000 mls @ 12 mls/hr IV TITRATE GABINO; Protocol Last Titration: 03/04/20 05:30 Dose: 15 munits/min, 90 mls/hr Documented by: Misoprostol (Cytotec) 25 mcg VAG Q4H ONE Stop: 03/03/20 08:01 Last Admin: 03/03/20 19:05 Dose: Not Given Documented by: Nalbuphine HCl (Nubain) 10 mg IVPUSH Q2H PRN PRN Reason: Pain Ondansetron HCl (Zofran) 4 mg IVPUSH Q4H PRN PRN Reason: Nausea/Vomiting Last Admin: 03/04/20 00:46 Dose: 4 mg Documented by: Sodium Chloride (Saline Flush) 10 ml FLUSH ASDIRECTED PRN PRN Reason: Keep Vein Open Stop: 03/03/20 12:00 - Interaction Infant Disposition, : in Room with Family Infant Interaction: Holding Feeding: Bottle Fed Support Person: - Recovery Exam Fundal Tone: Firm Fundal Level: At Umbilicus Fundal Placement: Midline Lochia Amount: Small Lochia Color: Rubra/Red Bladder Status: Voiding - Exam General: Alert, Oriented, Cooperative GI/Abdominal Exam: Soft, Non-Tender Extremities: Normal Inspection Skin: Warm, Dry, Intact - Problem List & Annotations (1) 40 weeks gestation of SNOMED Code(s): 07632134 Code(s): Z3A.40 - 40 WEEKS GESTATION OF Status: Acute Current Visit: Yes (2) Rh negative state in antepartum period SNOMED Code(s): 935641945 Code(s): O26.899 - OTH RELATED CONDITIONS, UNSPECIFIED TRIMESTER; Z67.91 - UNSPECIFIED BLOOD TYPE, RH NEGATIVE Status: Acute Current Visit: Yes (3) Vaginal delivery SNOMED Code(s): 862688172 Code(s): O80 - ENCOUNTER FOR FULL-TERM UNCOMPLICATED DELIVERY Status: Acute Current Visit: Yes - Problem List Review Problem List Initiated/Reviewed/Updated: Yes - My Orders Last 24 Hours: My Active Orders 03/04/20 10:39 Acetaminophen [TylenoL] 650 mg PO Q4H PRN Benzocaine/Menthol [Dermoplast Pain Relief [place]] See Dose Instructions TOP ASDIRECTED PRN Docusate Sodium [Colace] 100 mg PO BID PRN Ibuprofen [Motrin] 600 mg PO Q6H PRN witch Torrie [Tucks] 1 pad TOP ASDIRECTED PRN Heat Therapy [OM.PC] PRN 03/04/20 10:39 Activity as Tolerated [RC] PER UNIT ROUTINE Vital Signs [RC] 03,09,15,21 Assess Lochia [WOMSER] Per Unit Routine Assess Uterine Involution [WOMSER] Per Unit Routine Breast Pump [WOMSER] Per Unit Routine Ice Therapy [OM.PC] Per Unit Routine Perineal Care [OM.PC] Per Unit Routine Peripheral IV Discontinue [OM.PC] Routine Sitz Bath [OM.PC] Per Unit Routine 03/04/20 Lunch Regular Diet [DIET] 03/05/20 10:39 Heat Therapy [OM.PC] PRN - Assessment Assessment:: PPD#1 - Plan Plan:: * Routine cares * Bottle feeding on discharge so can resume hypercholesterolemia medications * Baby Rh negative, no need for Rhogam * Discharge home tomorrow
[2020-03-05] MEDS: Docusate Sodium 100 MG Cap PO PRN (20:54)
[2020-03-06] MEDS: Ibuprofen 600 MG Tab PO PRN (02:49)
--- NOTE | 2020-03-06 07:01 | PCM.DCSUM1 ---
Discharge Summary - Hospital Course HPI Initial Comments: Scheduled for induction of labor but admitted in labor. Uncomplicated labor, delivery and course. Diagnosis: Stroke: No - Discharge Data Discharge Date: 03/06/20 Discharge Disposition: Home, Self-Care 01 Condition: Good - Referral to Home Health Primary Care Physician: Ting Chan MD - Patient Instructions Diet: Regular Diet as Tolerated Activity: As Tolerated Activity, Other: Pelvic rest for 6 weeks Driving: May Drive Today Showering/Bathing: May Shower Showering/Bathing, Other: May Bathe Notify Provider of: Fever, Increased Pain, Swelling and Redness, Drainage, Nausea and/or Vomiting - Discharge Plan *PRESCRIPTION DRUG MONITORING PROGRAM REVIEWED*: No *COPY OF PRESCRIPTION DRUG MONITORING REPORT IN PATIENT SLAVA: No Home Medications: Home Meds Vits #93/Iron Fum/FA [ Formula Tablet] 12/21/19 [History] Docusate Sodium [Colace] 100 mg PO BID PRN cap 03/05/20 [Rx] Ibuprofen [Motrin] 600 mg PO Q6H PRN tablet 03/05/20 [Rx] Referrals: Ting Chan MD [Primary Care Provider] - (3 weeks for check - can be telehealth ) - Discharge Summary/Plan Comment DC Time >30 min.: No - General Info Date of Service: 03/06/20 Functional Status: Reports: Pain Controlled - Review of Systems General: Reports: No Symptoms HEENT: Reports: No Symptoms Pulmonary: Reports: No Symptoms Cardiovascular: Reports: No Symptoms Gastrointestinal: Reports: No Symptoms Genitourinary: Reports: No Symptoms Musculoskeletal: Reports: No Symptoms Skin: Reports: No Symptoms Neurological: Reports: No Symptoms Psychiatric: Reports: No Symptoms - Patient Data Vitals - Most Recent: Last Vital Signs Temp 36.1 C 03/06/20 02:32 Pulse 75 03/06/20 02:32 Resp 16 03/06/20 02:32 BP 113/82 03/06/20 02:32 Pulse Ox 98 03/06/20 02:32 Weight - Most Recent: 88.451 kg I&O - Last 24 hours: Intake & Output 03/05/20 03/06/20 03/06/20 22:59 06:59 14:59 Intake Total 640 Balance 640 Med Orders - Current: Current Medications Acetaminophen (Tylenol) 650 mg PO Q4H PRN PRN Reason: mild pain or fever Benzocaine/Menthol (Dermoplast Pain Relief [place]) 0 gm TOP ASDIRECTED PRN PRN Reason: Perineal Comfort Measure Last Admin: 03/04/20 11:03 Dose: 1 can Documented by: Docusate Sodium (Colace) 100 mg PO BID PRN PRN Reason: Constipation Last Admin: 03/05/20 20:54 Dose: 100 mg Documented by: Ibuprofen (Motrin) 600 mg PO Q6H PRN PRN Reason: Mild pain or fever Last Admin: 03/06/20 02:49 Dose: 600 mg Documented by: Mickey Hamilton (Tucks) 1 pad TOP ASDIRECTED PRN PRN Reason: Perineal Comfort Measure Last Admin: 03/04/20 11:03 Dose: 1 jar Documented by: Discontinued Medications Bupivacaine HCl (Sensorcaine-Mpf 0.25%) 10 ml .ROUTE .[facility] Stop: 03/04/20 00:01 Calcium Carbonate/Glycine (Tums) 1,000 mg PO Q2H PRN PRN Reason: Indigestion Diphenhydramine HCl (Benadryl) 25 mg IVPUSH Q6H PRN PRN Reason: pruritis Ephedrine Sulfate (Ephedrine Sulfate) 5 mg IVPUSH ASDIRECTED PRN PRN Reason: Hypotension Fentanyl (Sublimaze) 100 mcg EPIDUR Q3H PRN PRN Reason: Pain Last Admin: 03/04/20 03:28 Dose: 100 mcg Documented by: Fentanyl/Bupivacaine HCl (Fentanyl/Bupivacaine/Ns 2 Mcg-0.125% 100 Ml) 100 ml EPIDUR ASDIRECTED PRN PRN Reason: Pain Last Admin: 03/04/20 02:53 Dose: 100 ml Documented by: Lactated Ringer's (Ringers, Lactated) 1,000 mls @ 100 mls/hr IV ASDIRECTED GABINO Last Admin: 03/04/20 00:46 Dose: 100 mls/hr Documented by: Oxytocin/Lactated Ringer's (Pitocin In Lr 10 Units/1,000 Ml) 10 unit in 1,000 mls @ 12 mls/hr IV TITRATE GABINO; Protocol Last Titration: 03/04/20 05:30 Dose: 15 munits/min, 90 mls/hr Documented by: Misoprostol (Cytotec) 25 mcg VAG Q4H ONE Stop: 03/03/20 08:01 Last Admin: 03/03/20 19:05 Dose: Not Given Documented by: Nalbuphine HCl (Nubain) 10 mg IVPUSH Q2H PRN PRN Reason: Pain Ondansetron HCl (Zofran) 4 mg IVPUSH Q4H PRN PRN Reason: Nausea/Vomiting Last Admin: 03/04/20 00:46 Dose: 4 mg Documented by: Sodium Chloride (Saline Flush) 10 ml FLUSH ASDIRECTED PRN PRN Reason: Keep Vein Open Stop: 03/03/20 12:00 - Exam General: Reports: Alert, Oriented HEENT: Reports: Pupils Equal, Pupils Reactive, EOMI, Mucous Membr. Moist/[place] Neck: Reports: Supple Cardiovascular: Reports: Regular Rate, Regular Rhythm GI/Abdominal Exam: Normal Bowel Sounds, Soft, Non-Tender, No Organomegaly, No Distention, No Abnormal Bruit, No Mass, Pelvis Stable Back Exam: Reports: Normal Inspection, Full Range of Motion Extremities: Normal Inspection, Normal Range of Motion, Non-Tender, No Pedal Edema, Normal Capillary Refill Skin: Reports: Warm, Dry, Intact Wound/Incisions: Reports: Healing Well Neurological: Reports: No New Focal Deficit Psy/Mental Status: Reports: Alert, Normal Affect, Normal Mood
== END 2020-03-06 10:20 | disposition home or self-care (01) | DRG 560 ==
LOC: EDSTATUS 07:09 → JD.OB 03-03 07:12 → OBSVTOIN 03-04 09:21 → JD.OB 03-04 09:22
PROVIDERS: ADMIT Obstetrics & Gynecology; ATTEND Obstetrics & Gynecology
PROC: 10E0XZZ Delivery of Products of Conception, External Approach (ICD-10-PCS; principal; 2020-03-04)
PROC: 10907ZC Drainage of Amniotic Fluid, Therapeutic from Products of Conception, Via Natural or Artificial Opening (ICD-10-PCS; 2020-03-04)
PROC: 3E033VJ Introduction of Other Hormone into Peripheral Vein, Percutaneous Approach (ICD-10-PCS; 2020-03-04)
PROC: 0U7C7ZZ Dilation of Cervix, Via Natural or Artificial Opening (ICD-10-PCS; 2020-03-04)
PROC: 0HQ9XZZ Repair Perineum Skin, External Approach (ICD-10-PCS; 2020-03-04)
PROC: 3E0R3BZ Introduction of Anesthetic Agent into Spinal Canal, Percutaneous Approach (ICD-10-PCS; 2020-03-04)
PROC: 00HU33Z Insertion of Infusion Device into Spinal Canal, Percutaneous Approach (ICD-10-PCS; 2020-03-04)
PROC: 10H07YZ Insertion of Other Device into Products of Conception, Via Natural or Artificial Opening (ICD-10-PCS; 2020-03-04)
DX: O99.52 Diseases of the respiratory system complicating childbirth (principal); J45.909 Unspecified asthma, uncomplicated; Z90.49 Acquired absence of other specified parts of digestive tract; E78.00 Pure hypercholesterolemia, unspecified; O99.284 Endocrine, nutritional and metabolic diseases complicating childbirth; Z37.0 Single live birth; Z3A.40 40 weeks gestation of pregnancy; O70.0 First degree perineal laceration during delivery; Z20.828 Contact with and (suspected) exposure to other viral communicable diseases
CPT/HCPCS: 01967; 36415; 51702; 59025; 59409; 85025; 86592; 86850; 86870; 86900; 86901; A9270-GY; J2405; J2590; J3010; J3490; J7120; U0002

== ENCOUNTER 2020-06-14 22:52 | Emergency (ER) | payer BC ==
--- NOTE | 2020-06-15 00:09 | EDM.PDOC ---
ED HPI GENERAL MEDICAL PROBLEM - General Chief Complaint: Asthma Stated Complaint: SOB Time Seen by Provider: 06/14/20 23:48 Source of Information: Reports: Patient History Limitations: Reports: No Limitations - History of Present Illness INITIAL COMMENTS - FREE TEXT/NARRATIVE: Mrs. Foss is a very pleasant 29-year-old woman with a past medical history significant for allergic rhinitis and suspected asthma, who now presents to the ED after developing dyspnea and a nonproductive cough, along with tightness felt in her throat and chest, after running down stairs and back up again around 22:30 tonight. She has not been wheezing. She took 3 puffs from her albuterol MDI around 22:30, with no improvement in her symptoms. She states that her current symptoms are similar to when she has experienced prior asthma exacerbations. The patient states that she was told that she has asthma at 16 years old, but acknowledges that she has never undergone pulmonary function tests. Here in the ED, the patient's initial BP is found to be elevated at 152/104, otherwise, she is hemodynamically stable, afebrile, saturating 99 to 100% on room air. Prior to tonight, the patient denies having a recent fever, chills, sore throat, ear pain, nasal or sinus congestion, cough, dyspnea, chest pain, palpitations, nausea, vomiting, constipation, diarrhea, abdominal pain, urinary symptoms, recent weight gain or weight loss, recent bloody bowel movements or black bowel movements, recent joint aches, headaches, or rashes. The patient's PCP is BIGG Vora. Her Product Examiner is Dr. John Mazariegos. Her Clerk Operator is Dr. Ting Chan. Her Commercial Fisher is Dr. Daniel Coleman. She states that she has already received an influenza vaccine this season. - Related Data Allergies Allergy/AdvReac Type Severity Reaction Status Date / Time Fish Containing Products Allergy Rash Verified 06/14/20 22:59 pet dander Allergy Rash Uncoded 06/14/20 22:59 Home Meds: Home Meds [place] 1 injection IM ASDIRECTED 06/14/20 [History] Rosuvastatin Calcium [Crestor] 40 mg PO DAILY 06/14/20 [History] Sertraline [Zoloft] 50 mg PO BEDTIME 06/14/20 [History] Past Medical History HEENT History: Reports: Allergic Rhinitis, Impaired Vision Cardiovascular History: Reports: High Cholesterol Respiratory History: Reports: Asthma (suspected since 16 yrs old, not tested) Psychiatric History: Reports: Anxiety (untreated) Endocrine/Metabolic History: Reports: Obesity/BMI 30+ - Past Surgical History HEENT Surgical History: Reports: Adenoidectomy, Oral Surgery (dental extractions), Tonsillectomy GI Surgical History: Reports: Appendectomy, Cholecystectomy (2019), Colonoscopy, EGD Social & Family History - Tobacco Use Tobacco Use Status *Q: Never Tobacco User Second Hand Smoke Exposure: No - Caffeine Use Caffeine Use: Reports: None - Alcohol Use Alcohol Use History: Yes Alcohol Use Frequency: Rarely - Recreational Drug Use Recreational Drug Use: No - Living Situation & Occupation Living situation: Reports: , with Spouse, with Family (3-month old daughter) 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 ED EXAM, GENERAL - Physical Exam Exam: See Below Exam Limited By: No Limitations General Appearance: Alert, WD/WN, No Apparent Distress Eye Exam: Bilateral Eye: EOMI, Normal Inspection Ears: Normal External Exam, Hearing Grossly Normal Nose: Normal Inspection Throat/Mouth: Normal Inspection, Normal Lips, Normal Voice, No Airway Compromise Head: Atraumatic, Normocephalic Neck: Normal Inspection, Full Range of Motion Respiratory/Chest: No Respiratory Distress, Lungs Clear, Normal Breath Sounds, No Accessory Muscle Use, Chest Non-Tender. No: Decreased Breath Sounds, Crackles, Rhonchi, Wheezing, Stridor, Prolonged Expiration Cardiovascular: Normal Peripheral Pulses, Regular Rate, Rhythm, No Edema, No Gallop, No JVD, No Murmur, No Rub Peripheral Pulses: 3+: Radial (L), Radial (R) GI/Abdominal: Normal Bowel Sounds, Soft, Non-Tender, No Organomegaly, No Distention, No Abnormal Bruit, No Mass Back Exam: Normal Inspection, Full Range of Motion, NT Extremities: Normal Inspection, Normal Range of Motion, No Pedal Edema, Normal Capillary Refill Neurological: Alert, Oriented, Normal Cognition, No Motor/Sensory Deficits Psychiatric: Normal Affect Skin Exam: Warm, Dry, Intact, Normal Color, No Rash #1 Interpretation EKG Date: 06/15/20 Time: 00:27 Rhythm: Other (Sinus bradycardia) Rate (Beats/Min): 59 [place]: Normal P-Wave: Present QRS: Normal ST-T: Normal QT: Normal Comparison: NA - No Prior EKG Course - Vital Signs Last Recorded V/S: Last Vital Signs Temp 36.3 C 06/14/20 22:56 Pulse 64 06/14/20 22:56 Resp 20 06/14/20 22:56 BP 152/104 H 06/14/20 22:56 Pulse Ox 99 06/14/20 22:56 - Orders/Labs/Meds Labs: Laboratory Tests 06/15/20 06/15/20 06/15/20 Range/Units 00:13 00:24 00:24 WBC 8.25 (3.98-10.04) K/mm3 RBC 4.63 (3.98-5.22) M/mm3 Hgb 12.9 (11.2-15.7) gm/dl Hct 39.9 (34.1-44.9) % MCV 86.2 (79.4-94.8) fl MCH 27.9 (25.6-32.2) pg MCHC 32.3 (32.2-35.5) g/dl RDW Std Deviation 39.3 (36.4-46.3) fL Plt Count 229 (182-369) K/mm3 MPV 9.4 (9.4-12.3) fl Neutrophils % (Manual) 58 (40-60) % Band Neutrophils % 0 (0-10) % Lymphocytes % (Manual) 30 (20-40) % Atypical Lymphs % 0 % Monocytes % (Manual) 9 (2-10) % Eosinophils % (Manual) 3 (0.7-5.8) % Basophils % (Manual) 0 L (0.1-1.2) Platelet Estimate Adequate RBC Morph Comment Normal D-Dimer, Quantitative (0.19-0.50) mg/L Puncture Site Lt radial ABG pH 7.40 (7.35-7.45) ABG pCO2 44.5 (35.0-45.0) mmHg ABG pO2 108.0 H (80.0-100.0) mmHg ABG HCO3 26.7 H (22.0-26.0) meq/L ABG O2 Saturation 98.2 H (96.0-97.0) % ABG Base Excess 2.0 (-2-2.0) Gerson Test Positive O2 Delivery Device Room air Sodium 146 H (136-145) mEq/L Potassium 3.8 (3.5-5.1) mEq/L Chloride 105 (98-107) mEq/L Carbon Dioxide 30 (21-32) mEq/L Anion Gap 14.8 (5-15) BUN 12 (7-18) mg/dL Creatinine 1.2 H (0.55-1.02) mg/dL Est Cr Clr Drug Dosing 57.22 mL/min Estimated GFR (MDRD) 53 (>60) mL/min BUN/Creatinine Ratio 10.0 L (14-18) Glucose 101 (74-106) mg/dL Calcium 9.3 (8.5-10.1) mg/dL Magnesium 1.9 (1.8-2.4) mg/dl Total Bilirubin 0.2 (0.2-1.0) mg/dL AST 15 (15-37) U/L ALT 35 (14-59) U/L Alkaline Phosphatase 84 (46-116) U/L Troponin I < 0.017 (0.00-0.056) ng/mL Total Protein 7.2 (6.4-8.2) g/dl Albumin 3.8 (3.4-5.0) g/dl Globulin 3.4 gm/dL Albumin/Globulin Ratio 1.1 (1-2) TSH 3rd Generation 1.857 (0.358-3.74) uIU/mL Urine Color (Yellow) Urine Appearance (Clear) Urine pH (5.0-8.0) Ur Specific Hooks (1.005-1.030) Urine Protein (Negative) Urine Glucose (UA) (Negative) Urine Ketones (Negative) Urine Occult Blood (Negative) Urine Nitrite (Negative) Urine Bilirubin (Negative) Urine Urobilinogen (0.2-1.0) Ur Leukocyte Esterase (Negative) Urine RBC (0-5) /hpf Urine WBC (0-5) /hpf Ur Squamous Epith Cells (0-5) /hpf Urine Bacteria (FEW) /hpf Urine Mucus (FEW) /hpf Urine HCG, Qual (NEGATIVE) 06/15/20 06/15/20 06/15/20 Range/Units 00:24 00:59 00:59 WBC (3.98-10.04) K/mm3 RBC (3.98-5.22) M/mm3 Hgb (11.2-15.7) gm/dl Hct (34.1-44.9) % MCV (79.4-94.8) fl MCH (25.6-32.2) pg MCHC (32.2-35.5) g/dl RDW Std Deviation (36.4-46.3) fL Plt Count (182-369) K/mm3 MPV (9.4-12.3) fl Neutrophils % (Manual) (40-60) % Band Neutrophils % (0-10) % Lymphocytes % (Manual) (20-40) % Atypical Lymphs % % Monocytes % (Manual) (2-10) % Eosinophils % (Manual) (0.7-5.8) % Basophils % (Manual) (0.1-1.2) Platelet Estimate RBC Morph Comment D-Dimer, Quantitative 0.21 (0.19-0.50) mg/L Puncture Site ABG pH (7.35-7.45) ABG pCO2 (35.0-45.0) mmHg ABG pO2 (80.0-100.0) mmHg ABG HCO3 (22.0-26.0) meq/L ABG O2 Saturation (96.0-97.0) % ABG Base Excess (-2-2.0) Gerson Test O2 Delivery Device Sodium (136-145) mEq/L Potassium (3.5-5.1) mEq/L Chloride (98-107) mEq/L Carbon Dioxide (21-32) mEq/L Anion Gap (5-15) BUN (7-18) mg/dL Creatinine (0.55-1.02) mg/dL Est Cr Clr Drug Dosing mL/min Estimated GFR (MDRD) (>60) mL/min BUN/Creatinine Ratio (14-18) Glucose (74-106) mg/dL Calcium (8.5-10.1) mg/dL Magnesium (1.8-2.4) mg/dl Total Bilirubin (0.2-1.0) mg/dL AST (15-37) U/L ALT (14-59) U/L Alkaline Phosphatase (46-116) U/L Troponin I (0.00-0.056) ng/mL Total Protein (6.4-8.2) g/dl Albumin (3.4-5.0) g/dl Globulin gm/dL Albumin/Globulin Ratio (1-2) TSH 3rd Generation (0.358-3.74) uIU/mL Urine Color Yellow (Yellow) Urine Appearance Clear (Clear) Urine pH 7.0 (5.0-8.0) Ur Specific Hooks 1.025 (1.005-1.030) Urine Protein Trace H (Negative) Urine Glucose (UA) Negative (Negative) Urine Ketones Trace H (Negative) Urine Occult Blood Negative (Negative) Urine Nitrite Negative (Negative) Urine Bilirubin Negative (Negative) Urine Urobilinogen 0.2 (0.2-1.0) Ur Leukocyte Esterase Negative (Negative) Urine RBC Not seen (0-5) /hpf Urine WBC 0-5 (0-5) /hpf Ur Squamous Epith Cells 0-5 (0-5) /hpf Urine Bacteria Few (FEW) /hpf Urine Mucus Moderate H (FEW) /hpf Urine HCG, Qual Negative (NEGATIVE) - Re-Assessments/Exams Free Text/Narrative Re-Assessment/Exam: 06/15/20 00:04 As above, the patient developed dyspnea, a nonproductive cough, and tightness in her throat and chest after running down and up stairs around 22:30 tonight. Her symptoms did not improve despite taking 3 albuterol MDI puffs. Here in the ED, her initial BP is found to be slightly elevated, but she is afebrile, saturating 99 to 100% on room air. Her physical exam, including that of her lungs, is entirely clear, with no prolonged exhalation phase or wheezing. Despite the patient's concern of an asthma exacerbation, her presentation is not consistent with an asthma exacerbation, as asthma exacerbations are manifest as dyspnea and wheezing with or without a cough. Since she is not wheezing, she cannot be having an asthma exacerbation. An exception to this rule would be if her airways were so tight that she was not moving air, and therefore not wheezing, but that is not the case here - she is moving air well, indeed, her lung sounds are completely normal. I have ordered a work-up that includes numerous blood tests, an ABG, a urinalysis with urine test, a chest x-ray, and an ECG. 06/15/20 01:42 Two-view chest radiograph appears to be grossly normal. The cardiac silhouette is within normal limits. No pulmonary vascular congestion. No pleural effusions. No focal infiltrate. No pneumothorax. Formal read per the Radiologist pending. The patient's CBC, CMP, magnesium level, troponin, D-dimer, TSH, urinalysis, and urine test are all unremarkable/within normal limits/undetectably low. The patient's ABG represents a primary metabolic alkalosis with secondary respiratory acidosis. 06/15/20 01:51 Test results discussed with the patient. As above, today's work-up is completely unremarkable. I explained to the patient that her symptoms at this time are not due to an asthma exacerbation, and explained why. She appears to understand that. Further, her symptoms do not appear to be due to anxiety or hyperventilation, as her blood gas does not represent a primary respiratory alkalosis. Unfortunately, I cannot tell the patient what the cause of her symptoms is, I can only tell her what is not going on. The patient expressed understanding with that, as well. Going forward, I recommended that the patient follow-up with her PCP to arrange for PFTs to determine once and for all if she actually has asthma or not. The patient is agreeable. Departure - Departure Time of Disposition: 01:53 Disposition: Home, Self-Care 01 Condition: Good Clinical Impression: Dyspnea, Cough - Discharge Information *PRESCRIPTION DRUG MONITORING PROGRAM REVIEWED*: Not Applicable *COPY OF PRESCRIPTION DRUG MONITORING REPORT IN PATIENT SLAVA: Not Applicable Referrals: Char Orellana PA-C [Primary Care Provider] - Daniel Coleman DO [Ordering Only Provider] - Ting Chan MD [Physician] - John Mazariegos MD [Ordering Only Provider] - Forms: ED Department Discharge Additional Instructions: You were seen in the emergency room after developing shortness of breath and a cough, along with tightness in your throat and chest, after running down and up some stairs tonight. Work-up in the ER included numerous blood tests, an arterial blood gas, a urinalysis, a urine test, a chest x-ray, and an ECG. Your entire work-up was unremarkable, and does not explain the cause of your symptoms. As discussed, you were NOT spearing seeing an asthma attack, as your lungs were entirely clear with good air movement. Further, there is no suggestion of pneumonia, a blood clot in your lungs, anemia, electrolyte abnormalities, hyperthyroidism, infection, or problem with your heart. Going forward, we recommend that you follow-up with your PCP, BIGG Vora, to discuss undergoing pulmonary function test to determine once and for all if you have asthma. If any other problems, these do not hesitate to return to the ER. Sepsis Event Note (ED) - Evaluation Sepsis Screening Result: No Definite Risk
--- NOTE | 2020-06-15 08:57 | CR ---
Chest: PA and lateral views of the chest were obtained. Comparison: No prior chest imaging is available. Heart size and mediastinum are normal. Lungs are clear with no acute parenchymal change. Bony structures appear within normal limits for the patient's age. Impression: 1. Nothing acute is appreciated on 2 view chest x-ray. Diagnostic code #1
== END 2020-06-15 02:17 | disposition home or self-care (01) ==
LOC: JD.ED 22:52
DX: R06.00 Dyspnea, unspecified (principal); R05 Cough; R07.89 Other chest pain; E78.00 Pure hypercholesterolemia, unspecified; Z91.013 Allergy to seafood; Z91.09 Other allergy status, other than to drugs and biological substances; Z79.899 Other long term (current) drug therapy
CPT/HCPCS: 36415; 36600; 71046; 71046-26; 80053; 81001; 81025; 82803; 83735; 84443; 84484; 85007; 85027; 85379; 93005; 93010; 99283; 99285-25

== ENCOUNTER 2023-01-25 15:53 | Emergency (ER) | payer BC ==
[2023-01-25] MEDS ORDERED: Metoclopramide 10 MG/2 ML SDV IVPUSH ONE (17:17)
[2023-01-25] MEDS ORDERED: LORazepam 2 MG/ML SDV IVPUSH ONE (17:17)
[2023-01-25] MEDS ORDERED: Dextrose 5%-0.9% NaCl 1,000 ML IV SCH (17:30)
[2023-01-25 18:06] LABS: APPEARANCE,URINE CLEAR (Clear); BILIRUBIN,URINE NEGATIVE (Negative); COLOR,URINE YELLOW (Yellow); GLUCOSE,URINE NEGATIVE (Negative); KETONES,URINE NEGATIVE (Negative); LEUKOCYTE ESTERASE,URINE NEGATIVE (Negative); NITRITE,URINE NEGATIVE (Negative); OCCULT BLOOD,URINE NEGATIVE (Negative); PROTEIN,URINE NEGATIVE (Negative); UROBILINOGEN,URINE 0.2 (0.2-1.0)
[2023-01-25 18:09] LABS: BACTERIA,URINE FEW /hpf (FEW); MUCUS,URINE FEW /hpf (FEW); RBC,URINE 0-5 /hpf (0-5); SQUAMOUS EPITHELIAL CELLS,UR 0-5 /hpf (0-5); WBC,URINE 0-5 /hpf (0-5)
== END 2023-01-25 18:55 | disposition home or self-care (01) ==
LOC: JD.ED 15:53
DX: O99.891 Other specified diseases and conditions complicating pregnancy (principal); R42 Dizziness and giddiness; R11.0 Nausea; E78.00 Pure hypercholesterolemia, unspecified; Z3A.00 Weeks of gestation of pregnancy not specified; E66.9 Obesity, unspecified; Z68.32 Body mass index [BMI] 32.0-32.9, adult; Z91.013 Allergy to seafood; Z91.048 Other nonmedicinal substance allergy status; Z79.899 Other long term (current) drug therapy; Z90.49 Acquired absence of other specified parts of digestive tract
CPT/HCPCS: 81001; 81025; 93005; 96361; 96374; 96375; 99285; J2060; J2765; J7042; 93010; 99284

== ENCOUNTER 2023-09-21 15:24 | Inpatient (IN) | payer BC ==
[~2023-09-21 15:24] MED LIST: Ropivacaine 0.2% PF 2 MG/ML 20 ML SDV ONE
[2023-09-21] MEDS ORDERED: Lidocaine 1% 50 ML MDV INJECT PRN (15:51)
[2023-09-21] MEDS ORDERED: Ondansetron 4 MG/2 ML SDV IVPUSH PRN (15:51)
[2023-09-21] MEDS ORDERED: Nalbuphine 10 MG/ML Syringe IVPUSH PRN (15:51)
[2023-09-21] MEDS ORDERED: Sodium Chloride 0.9% 10 ML Syringe FLUSH PRN (15:51)
[2023-09-21] MEDS ORDERED: Oxytocin/Lactated Ringers 30 UNIT/500 ML BAG IV SCH (16:00)
[2023-09-21 16:21] LABS: BASOPHILS PERCENT AUTO 0.1 % (0.0-1.0); EOSINOPHILS ABSOLUTE AUTO 0.1 K/mm3 (0.0-0.4); EOSINOPHILS PERCENT AUTO 1.4 % (0.0-6.0); HEMATOCRIT 35.3 % (37.0-47.0); HEMOGLOBIN 12.1 gm/dl (12.0-16.0); IMMATURE GRAN ABSOLUTE AUTO 0.08 K/mm3 (0.00-0.05); IMMATURE GRAN PERCENT AUTO 0.9 % (0.0-0.4); LYMPHOCYTES ABSOLUTE AUTO 1.4 K/mm3 (1.0-4.8); LYMPHOCYTES PERCENT AUTO 15.7 % (24.0-44.0); MEAN CORPUSCULAR HEMOGLOBIN 28.9 pg (28.0-32.0); MEAN CORPUSCULAR HGB CONC 34.3 g/dl (32.0-36.0); MEAN CORPUSCULAR VOLUME 84.4 fl (83.0-99.0); MEAN PLATELET VOLUME 9.8 fl (9.4-12.3); MONOCYTES ABSOLUTE AUTO 0.7 K/mm3 (0.0-0.8); MONOCYTES PERCENT AUTO 7.7 % (0.0-8.0); NEUTROPHILS ABSOLUTE AUTO 6.4 K/mm3 (1.8-7.7); NEUTROPHILS PERCENT AUTO 74.2 % (41.0-71.0); PLATELET COUNT,PLT 223 K/mm3 (150-400); RED BLOOD CELL COUNT 4.18 M/mm3 (4.10-5.30); WHITE BLOOD CELL COUNT,WBC 8.68 K/mm3 (3.9-11.3)
[2023-09-21] MEDS: Misoprostol 25 MCG (1/4 of 100 MCG) Tab VAG PRN (16:45)
[2023-09-21] MEDS: Sertraline 50 MG Tab PO SCH (21:00)
[2023-09-21] MEDS: Lactated Ringers 1,000 ML IV SCH (22:59)
[2023-09-22] MEDS: Oxytocin/Lactated Ringers 30 UNIT/500 ML BAG IV SCH (01:06)
[2023-09-22] MEDS: Sodium Chloride 0.9% 10 ML Syringe FLUSH SCH (05:13)
[2023-09-22] MEDS ORDERED: ePHEDrine 50 MG/ML SDV IVPUSH PRN (06:12)
[2023-09-22] MEDS ORDERED: diphenhydrAMINE 50 MG/ML SDV IVPUSH PRN (06:12)
[2023-09-22] MEDS: fentaNYL 100 MCG/2 ML SDV EPIDUR PRN (06:41)
[2023-09-22] MEDS: Bupivacaine/fentaNYL/NS 100 ML Bag EPIDUR PRN (14:37)
[2023-09-22] MEDS ORDERED: Witch Hazel Medicated Pads 40/Jar TOP PRN (17:37)
[2023-09-22] MEDS ORDERED: Docusate Sodium 100 MG Cap PO PRN (17:37)
[2023-09-22] MEDS ORDERED: Benzocaine/Menthol 20%-0.5% Spray 78 GM Cannister TOP PRN (17:37)
[2023-09-22] MEDS: Ibuprofen 600 MG Tab PO SCH (20:08)
[2023-09-23] MEDS: Ibuprofen 600 MG Tab PO SCH (00:24)
[2023-09-23 05:40] LABS: BASOPHILS PERCENT AUTO 0.2 % (0.0-1.0); EOSINOPHILS ABSOLUTE AUTO 0.1 K/mm3 (0.0-0.4); HEMATOCRIT 36.2 % (37.0-47.0); HEMOGLOBIN 12.2 gm/dl (12.0-16.0); IMMATURE GRAN PERCENT AUTO 0.8 % (0.0-0.4); LYMPHOCYTES ABSOLUTE AUTO 1.9 K/mm3 (1.0-4.8); LYMPHOCYTES PERCENT AUTO 14.5 % (24.0-44.0); MEAN CORPUSCULAR HEMOGLOBIN 28.8 pg (28.0-32.0); MEAN CORPUSCULAR HGB CONC 33.7 g/dl (32.0-36.0); MEAN CORPUSCULAR VOLUME 85.6 fl (83.0-99.0); MEAN PLATELET VOLUME 9.7 fl (9.4-12.3); MONOCYTES ABSOLUTE AUTO 0.9 K/mm3 (0.0-0.8); MONOCYTES PERCENT AUTO 7.4 % (0.0-8.0); NEUTROPHILS ABSOLUTE AUTO 9.7 K/mm3 (1.8-7.7); NEUTROPHILS PERCENT AUTO 76.1 % (41.0-71.0); PLATELET COUNT,PLT 187 K/mm3 (150-400); RED BLOOD CELL COUNT 4.23 M/mm3 (4.10-5.30); WHITE BLOOD CELL COUNT,WBC 12.78 K/mm3 (3.9-11.3)
[2023-09-23] MEDS: Acetaminophen 325 MG Tab PO PRN (08:43)
== END 2023-09-23 18:30 | disposition home or self-care (01) | DRG 560 ==
LOC: JD.OB 15:24 → OBSVTOIN 09-22 16:38 → JD.OB 09-22 16:39
PROVIDERS: ADMIT Obstetrics & Gynecology; ATTEND Obstetrics & Gynecology
PROC: 10E0XZZ Delivery of Products of Conception, External Approach (ICD-10-PCS; principal; 2023-09-22)
PROC: 0KQM0ZZ Repair Perineum Muscle, Open Approach (ICD-10-PCS; 2023-09-22)
PROC: 3E0R3BZ Introduction of Anesthetic Agent into Spinal Canal, Percutaneous Approach (ICD-10-PCS; 2023-09-22)
PROC: 00HU33Z Insertion of Infusion Device into Spinal Canal, Percutaneous Approach (ICD-10-PCS; 2023-09-22)
PROC: 10907ZC Drainage of Amniotic Fluid, Therapeutic from Products of Conception, Via Natural or Artificial Opening (ICD-10-PCS; 2023-09-22)
PROC: 3E0334Z Introduction of Serum, Toxoid and Vaccine into Peripheral Vein, Percutaneous Approach (ICD-10-PCS; 2023-09-23)
DX: O26.893 Other specified pregnancy related conditions, third trimester (principal); Z3A.39 39 weeks gestation of pregnancy; Z37.0 Single live birth; Z88.8 Allergy status to other drugs, medicaments and biological substances; Z91.013 Allergy to seafood; O99.344 Other mental disorders complicating childbirth; F41.9 Anxiety disorder, unspecified; E78.01 Familial hypercholesterolemia; O70.0 First degree perineal laceration during delivery; O76 Abnormality in fetal heart rate and rhythm complicating labor and delivery; Z67.21 Type B blood, Rh negative
CPT/HCPCS: 36415; 51702; 59025; 59409; 85025; 85461; 86592; 86850; 86900; 86901; A9270-GY; J2790; J2795; J3010; J3490; J7120; J7999